=== PATIENT | male | born 2000 | race Caucasian/White ===

== ENCOUNTER 2025-01-20 08:54 | Emergency (ER) | payer OTHER ==
[~2025-01-20] VITALS: Ht 167.6 cm; Wt 86.2 kg
[2025-01-20 08:59] VITALS: TEMP 97.9
[2025-01-20] MEDS ORDERED: IBUP-1114 PO (09:15)
[2025-01-20] MEDS ORDERED: MEDR4PAK PO (10:34)
[2025-01-20 10:41] VITALS: BP 125/69; O2SAT 98
== END 2025-01-20 10:53 | disposition home or self-care (01) ==
LOC: M ED 08:54
DX: M25.551 Pain in right hip (principal); Z91.0110 Allergy to milk products, unspecified; Z79.1 Long term (current) use of non-steroidal anti-inflammatories (NSAID); Z79.899 Other long term (current) drug therapy